=== PATIENT | male | born 1955 | race Caucasian/White ===

== ENCOUNTER → 2019-11-24 12:28 | Outpatient (BNVA) | payer BC, SELFPAY | PROVIDERS: Family Provider Nurse Practitioner Family; Visit Provider Urology | DX: N40.1 Benign prostatic hyperplasia with lower urinary tract symptoms (principal); Z12.5 Encounter for screening for malignant neoplasm of prostate; R79.89 Other specified abnormal findings of blood chemistry; N52.9 Male erectile dysfunction, unspecified | CPT/HCPCS: 81001; 84403 ==

== ENCOUNTER → 2020-02-17 12:41 | Outpatient (BNVA) | payer BC, SELFPAY | PROVIDERS: Family Provider Nurse Practitioner Family; Referring Provider Nurse Practitioner Family; Visit Provider Dermatology | DX: Z12.83 Encounter for screening for malignant neoplasm of skin (principal); I83.93 Asymptomatic varicose veins of bilateral lower extremities; L57.0 Actinic keratosis; B35.1 Tinea unguium; L70.8 Other acne; D18.01 Hemangioma of skin and subcutaneous tissue | CPT/HCPCS: 17000; 99203 ==

== ENCOUNTER 2020-05-14 05:59 | Emergency (ER) | payer BC, SELFPAY ==
[2020-05-14 06:05] VITALS: BP 152/97; PULSE 82; RESP 16; TEMP 36.7; O2SAT 95; BMI 33.8
--- NOTE | 2020-05-14 06:13 | W.ED.EAR ---
HPI - Ear Problem General: Chief complaint: Ear Stated complaint: possible bug in right ear Time Seen by Provider: 05/14/20 06:00 Source: patient Mode of arrival: ambulatory Limitations: no limitations History of Present Illness: HPI Narrative: 64-year-old male who states he was sleeping in woke up and felt a bug crawled in his ear. He has tried to flush it out with peroxide with no success. Patient states he does have pain he rates a 2 out of 10. Denies any worsening improving factors. MD Complaint: ear pain Location: right ear Associated symptoms: Reports ear or mastoid pain; Denies fever(s), headache(s) or neck pain Review of Systems Const: Denies: fever(s), chills, body aches or change in appetite Eyes: Denies: blurry vision or eye discomfort ENMT: Reports: ear or mastoid pain Card: Denies: chest pain Resp: Denies: dyspnea GI: Denies: abdominal pain, nausea, vomiting or diarrhea : Denies: dysuria Musc: Denies: neck pain or back pain Skin/Breast: Denies: rash Neuro: Denies: headache(s) Psych: Denies: depression Isaak/Lymph: Denies: easy bruising All/Imm: Denies: urticaria PFSH ED PFSH: Medical History (Updated 05/14/20 @ 06:13 by Mohit Koch MD) BPH NOS w ur obs/LUTS Erectile dysfunction Hypogonadism Surgical History H/O inguinal hernia repair bilateral Family History Mother , at age 91 Hypertension Diabetes Father , at age 81 Cancer testicle Hypertension Denies family history of CAD (coronary artery disease) Social History Smoking and tobacco status: former smoker Alcohol intake: current Alcohol intake frequency: holidays/special occasions only Marital status: Current occupational status: employed History of recent travel: No Physical Exam Const: COMMON NORMALS: no acute distress, patient oriented x3 and healthy appearing HENMT: COMMON NORMALS: normocephalic and atraumatic HEAD & SCALP: normocephalic and atraumatic OTHER: Cockroach noted in right ear canal Eye: COMMON NORMALS: Equal, round and reactive pupils present and EOMs intact bilaterally PUPIL: Yes Equal, round and reactive pupils present Neck/C-Spine: COMMON NORMALS: full ROM and supple Chest: COMMONS NORMALS: normal inspection of the chest and normal palpation of entire chest wall Resp: COMMON NORMALS: normal respiratory effort, No retractions, No use of accessory muscles and clear to auscultation bilaterally AUSCULTATION: clear to auscultation bilaterally Cardio: COMMON NORMALS: regular rate, regular rhythm and No murmurs present (Cardio) RATE: regular rate RHYTHM: regular rhythm GI: COMMON NORMALS: Normal to inspection, nondistended, normoactive bowel sounds present, Soft to palpation, non-tender and no masses PALPATION: Yes Soft to palpation Extremity: COMMON NORMALS: normal to inspection and full ROM Neuro: COMMON NORMALS: patient oriented x3, moves all extremities and no focal motor deficits Psych: COMMON NORMALS: mental status grossly normal, Normal thought process present and cooperative THOUGHT PROCESS: Normal thought process present Skin: COMMON NORMALS: no rashes or lesions noted and no wounds GENERAL SKIN EXAM: no rashes or lesions noted Procedures Foreign Body Removal Site: other (ear) Description of foreign body: insect and other Sedation/Analgesia: none Technique: removal with forceps Confirmed by:: direct visualization Complications: none Course Vital Signs: Vital signs: Vital Signs Temperature 98.0 F 05/14/20 06:05 Pulse Rate 82 05/14/20 06:05 Respiratory Rate 16 05/14/20 06:05 Blood Pressure 152/97 05/14/20 06:05 Pulse Oximetry 95 05/14/20 06:05 MDM - Ear MDM Narrative: Medical decision making narrative: Patient presents here with insect in his right ear. Discharge Plan Discharge Patient Disposition: Home Clinical Impression: Foreign body in ear Qualifiers: Encounter type: initial encounter Laterality: right Qualified Code(s): T16.1XXA - Foreign body in right ear, initial encounter Condition: Stable Prescriptions: New ofloxacin 0.3 % drops 10 drp otic (ear) DAILY 7 Days Qty: 10 RF: 0 No Action simvastatin 10 mg tablet 10 mg PO DAILY RF: 0 ascorbate calcium (vitamin C) 500 mg tablet 500 mg PO DAILY RF: 0 omeprazole magnesium [Prilosec OTC] 20 mg tablet,delayed release (DR/EC) 20 mg PO DAILY RF: 0 sildenafil 100 mg tablet 100 mg PO DAILY PRN (Reason: sexual activity) Qty: 20 RF: 12 ropinirole 0.5 mg tablet 1 mg PO DAILY RF: 0 terazosin 10 mg capsule 10 mg PO DAILY Qty: 90 RF: 3 finasteride 5 mg tablet 5 mg PO DAILY Qty: 90 RF: 3 Discharge Orders: Discharge Order (Routine); Ordered 05/14/20 Ordered By: Mohit Koch Referrals: Mera Diaz FNP [Primary Care Provider] - Discharge Diet: Advance as tolerated Discharge Activity: Resume usual activity Patient Instructions: Ear Foreign Body (ED) Coding Level of Care Code ED Basket Bottom Machine Operator for Renny Munroe
[2020-05-14 06:17] VITALS: RESP 18
== END 2020-05-14 06:18 | disposition home or self-care (01) ==
PROVIDERS: Emergency Provider Emergency Medicine; PCP Nurse Practitioner Family
DX: T16.1XXA Foreign body in right ear, initial encounter (principal); Z87.891 Personal history of nicotine dependence; X58.XXXA Exposure to other specified factors, initial encounter
CPT/HCPCS: 12345; 69200; 99282

== ENCOUNTER 2020-06-06 16:46 | Emergency (ER) | payer BC, SELFPAY ==
[2020-06-06 16:52] VITALS: BP 132/81; PULSE 99; RESP 20; TEMP 36.9; O2SAT 97; BMI 32.8
--- NOTE | 2020-06-06 16:52 | XR_ITS ---
WS: [id number] XR chest 1V portable [id number] REASON FOR EXAM: cp FINDINGS: The chest is unchanged compared to previous examination of 11/14/2015. There is mild tortuosity of the thoracic aorta without significant dilatation. 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 No active pulmonary parenchymal or pleural disease is noted. Degenerative spondylosis, moderate, in the mid and lower thoracic spine. XR/XR chest 1V portable [id number] IMPRESSION: No acute chest abnormality.
--- NOTE | 2020-06-06 16:52 | ECG_ITS ---
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 Measurements Intervals [place] Rate: 98 P: 17 ND: 156 QRS: 42 QRSD: 90 T: 53 QT: 335 QTc: 429 Interpretive Statements SINUS RHYTHM POSSIBLE LEFT ATRIAL ENLARGEMENT [-0.1mV P WAVE IN V1/V2] NONSPECIFIC T-WAVE ABNORMALITY No previous ECG available for comparison Electronically Signed On 06-06-2020 21:03:09 IT SECURITY ANALYST by Hanny Jackson M.D. [id number]
--- NOTE | 2020-06-06 17:10 | ED_ITS ---
HPI - Chest Pain General: Chief Complaint: Chest Pain Stated Complaint: NUMBNESS IN ARMS/LEGS TIGHTNESS IN CHEST Time Seen by Provider: 06/06/20 16:57 Source: patient Mode of arrival: ambulatory Limitations: no limitations History of Present Illness: HPI narrative: 64-year-old male states today at work roughly 5 to 6 hours ago he had some slight chest pain and some numbness in his right arm and right leg. He states that the numbness and the pain ever since resolved. He states last 2 to 3 days he has had a slight cough and low- grade fever and just has not felt well and has had low energy. He denies any worsening or improving factors. He denies any shortness of breath. Denies any vomiting or diarrhea. Associated symptoms: Deny abdominal pain, dyspnea, fever(s), nausea or vomiting Review of Systems Const: Denies: fever(s), chills, body aches or change in appetite Eyes: Denies: blurry vision or eye discomfort ENMT: Denies: throat pain or dental pain Card: Reports: chest pain Resp: Denies: dyspnea GI: Denies: abdominal pain, nausea, vomiting or diarrhea : Denies: dysuria Musc: Denies: neck pain or back pain Skin/Breast: Denies: rash Neuro: Denies: headache(s) Psych: Denies: depression Isaak/Lymph: Denies: easy bruising All/Imm: Denies: urticaria PFSH ED PFSH: Medical History (Updated 06/06/20 @ 19:42 by Mohit Koch MD) BPH NOS w ur obs/LUTS Erectile dysfunction Hypogonadism Surgical History H/O inguinal hernia repair bilateral Family History Mother , at age 91 Hypertension Diabetes Father , at age 81 Cancer testicle Hypertension Denies family history of CAD (coronary artery disease) Social History Smoking and tobacco status: former smoker Alcohol intake: current Alcohol intake frequency: holidays/special occasions only Marital status: Current occupational status: employed History of recent travel: No Physical Exam Const: COMMON NORMALS: no acute distress, patient oriented x3 and healthy appearing HENMT: COMMON NORMALS: normocephalic and atraumatic HEAD & SCALP: normocephalic and atraumatic Eye: COMMON NORMALS: Equal, round and reactive pupils present and EOMs intact bilaterally PUPIL: Yes Equal, round and reactive pupils present Neck/C-Spine: COMMON NORMALS: full ROM and supple Chest: COMMONS NORMALS: normal inspection of the chest and normal palpation of entire chest wall Resp: COMMON NORMALS: normal respiratory effort, No retractions, No use of accessory muscles and clear to auscultation bilaterally AUSCULTATION: clear to auscultation bilaterally Cardio: COMMON NORMALS: regular rate, regular rhythm and No murmurs present (Cardio) RATE: regular rate RHYTHM: regular rhythm GI: COMMON NORMALS: Normal to inspection, nondistended, normoactive bowel sounds present, Soft to palpation, non-tender and no masses PALPATION: Yes S oft to palpation Extremity: COMMON NORMALS: normal to inspection and full ROM Neuro: COMMON NORMALS: patient oriented x3, moves all extremities and no focal motor deficits Psych: COMMON NORMALS: mental status grossly normal, Normal thought process present and cooperative THOUGHT PROCESS: Normal thought process present Skin: COMMON NORMALS: no rashes or lesions noted and no wounds GENERAL SKIN EXAM: no rashes or lesions noted Course Vital Signs: Vital signs: Vital Signs Temperature 98.4 F 06/06/20 16:52 Pulse Rate 99 06/06/20 16:52 Respiratory Rate 20 H 06/06/20 16:52 Blood Pressure 132/81 06/06/20 16:52 Pulse Oximetry 97 06/06/20 16:52 MDM - Chest Pain MDM Narrative: Medical decision making narrative: Hollis presents here with chest pain is atypical in nature. Initial and repeat troponins along with EKGs are normal. He is well-appearing here and is stable for discharge. He has no signs of pulmonary embolism. He has no signs of aortic dissection. He is to follow-up his PCP in 3 to 5 days return to the ER if worsening. Lab Data: Labs: Lab Results 06/06/20 06/06/20 06/06/20 Range/Units 17:18 17:18 17:18 WBC 5.9 (4.0-10.0) 10^3/ uL RBC 4.58 (4.1-5.3) 10^6/u L Hgb 13.9 (11.7-16.6) g/dL Hct 39.0 L (42.0-52.0) % MCV 85.2 (80-94) fL MCH 30.3 (28.0-34.0) pg MCHC 35.6 (30.0-36.0) g/dL RDW 13.0 (12.1-15.1) % Plt Count 168 (130-400) 10^3/c mm MPV 11.3 H (7.4-10.4) fL Neut % (Auto) 83.0 % Lymph % (Auto) 9.5 % Reynolds % (Auto) 6.6 % Eos % (Auto) 0.3 % Baso % (Auto) 0.3 % Neut # (Auto) 4.91 (1.8-7.7) 10^3/u L Lymph # (Auto) 0.6 L (0.8-4.8) 10^3/u L Reynolds # (Auto) 0.4 (0.2-0.9) 10^3/u L Eos # (Auto) 0.0 (0.0-0.8) 10^3/u L Baso # (Auto) 0.0 (0.0-0.1) 10^3/u L Nucleated RBC % (a uto) 0 % Nucleated RBCs # 0.0 /100WBC Sodium 139 (136-145) mmol/L Potassium 3.8 (3.5-5.1) mmol/L Chloride 104 (98-107) mmol/L Carbon Dioxide 22 (22-29) mmol/L Anion Gap 16.8 (5-19) BUN 21 (8-23) mg/dL Creatinine 1.0 (0.7-1.2) mg/dL GFR Calculation 75.7 L (90-130) mL/min Glucose 179 H (65-115) mg/dL Calculated Osmolal ity 295 (285-295) mOsm/k g Calcium 8.6 (8.5-10.5) mg/dL Total Bilirubin 0.4 (0.15-1.2) mg/dL AST 22 (0-40) U/L ALT 21 (0-41) U/L Alkaline Phosphata se 88 (40-130) IU/L Troponin T Baselin e 9 (0-15) ng/L Troponin T 120 Min port gamble (0-15) ng/L Delta Troponin T (0-10) ABS# Total Protein 6.6 (6.6-8.7) g/dL Albumin 4.3 (3.5-5.2) g/dL Globulin 2.3 (1.3-4.6) g/dL 06/06/20 Range/Units 19:07 WBC (4.0-10.0) 10^3/ uL RBC (4.1-5.3) 10^6/u L Hgb (11.7-16.6) g/dL Hct (42.0-52.0) % MCV (80-94) fL MCH (28.0-34.0) pg MCHC (30.0-36.0) g/dL RDW (12.1-15.1) % Plt Count (130-400) 10^3/c mm MPV (7.4-10.4) fL Neut % (Auto) % Lymph % (Auto) % Reynolds % (Auto) % Eos % (Auto) % Baso % (Auto) % Neut # (Auto) (1.8-7.7) 10^3/u L Lymph # (Auto) (0.8-4.8) 10^3/u L Reynolds # (Auto) (0.2-0.9) 10^3/u L Eos # (Auto) (0.0-0.8) 10^3/u L Baso # (Auto) (0.0-0.1) 10^3/u L Nucleated RBC % (a uto) % Nucleated RBCs # /100WBC Sodium (136-145) mmol/L Potassium (3.5-5.1) mmol/L Chloride (98-107) mmol/L Carbon Dioxide (22-29) mmol/L Anion Gap (5-19) BUN (8-23) mg/dL Creatinine (0.7-1.2) mg/dL GFR Calculation (90-130) mL/min Glucose (65-115) mg/dL Calculated Osmolal ity (285-295) mOsm/k g Calcium (8.5-10.5) mg/dL Total Bilirubin (0.15-1.2) mg/dL AST (0-40) U/L ALT (0-41) U/L Alkaline Phosphata se (40-130) IU/L Troponin T Baselin e (0-15) ng/L Troponin T 120 Min port gamble 7.60 (0-15) ng/L Delta Troponin T -1.40 L (0-10) ABS# Total Protein (6.6-8.7) g/dL Albumin (3.5-5.2) g/dL Globulin (1.3-4.6) g/dL Imaging Data^: CXR: Attestation: I personally reviewed and interpreted this imaging study as follows: Radiologist's impression: [facility] [address] [facility] [place] [address] XRay Report Signed Patient: Hollis Rain Unit #: [id number] : 1955 Age/Sex: 64 / M ADM Date: 06/06/20 Loc: ER Room/Bed: Attending Dr: Ordering Provider/Ordering MD: Mohit Koch MD Date of Service: 06/06/20 Procedure(s): XR chest 1V portable [id number] Accession Number(s): [id number] Report Number: [id number] WS: [id number] XR chest 1V portable [id number] REASON FOR EXAM: cp FINDINGS: The chest is unchanged compared to previous examination of 11/14/2015. There is mild tortuosity of the thoracic aorta without significant dilatation. 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 No active pulmonary parenchymal or pleural disease is noted. Degenerative spondylosis, moderate, in the mid and lower thoracic spine. XR/XR chest 1V portable [id number] IMPRESSION: No acute chest abnormality. Dictated By: Jonas Garcia Jr, MD EKG Data^: EKG 1: Attestation: I personally reviewed and interpreted this EKG as follows: EKG interpretation date: 06/06/20 EKG interpretation time: 16:51 Interpretation: nsr hr [address] or t wave abnormalities qrs 90 qtc 391 EKG 2: Attestation: I personally reviewed and interpreted this EKG as follows: EKG interpretation date: 06/06/20 EKG interpretation time: 19:00 Interpretation: nsr hr [address] or t wave abnormalities qrs 84 qtc 370 Discharge Plan Discharge Patient Disposition: Home Clinical Impression: Atypical chest pain Condition: Stable Prescriptions: No Action simvastatin 10 mg tablet 10 mg PO DAILY@22 RF: 0 omeprazole magnesium [Prilosec OTC] 20 mg tablet,delayed release (DR/EC) 20 mg PO DAILY@22 RF: 0 sildenafil 100 mg tablet 100 mg PO DAILY PRN (Reason: sexual activity) Qty: 20 RF: 12 terazosin 10 mg capsule 10 mg PO DAILY@22 RF: 0 finasteride 5 mg tablet 5 mg PO DAILY@22 RF: 0 Discharge Orders: Discharge ED (Routine); Ordered 06/06/20 Ordered By: Mohit Koch Referrals: Mera Diaz FNP [Primary Care Provider] - 1-3 days Discharge Diet: Advance as tolerated Discharge Activity: Resume usual activity Patient Instructions: Chest Pain (ED) Coding Level of Care Code ED Well Control Instructor for Chg Fwd Exam Comprehensive
[2020-06-06 17:27] LABS: Basophils % 0.3 %; Eosinophils % 0.3 %; Hemoglobin 13.9 g/dL (11.7-16.6); Lymphocytes # 0.6 10^3/uL (0.8-4.8); Lymphocytes % 9.5 %; Mean Corpuscular HGB Conc 35.6 g/dL (30.0-36.0); Mean Corpuscular Hemoglobin 30.3 pg (28.0-34.0); Mean Corpuscular Volume 85.2 fL (80-94); Mean Platelet Volume 11.3 fL (7.4-10.4); Monocytes # 0.4 10^3/uL (0.2-0.9); Monocytes % 6.6 %; Neutrophils # 4.91 10^3/uL (1.8-7.7); Nucleated Red Blood Cells % 0 %; Platelet Count 168 10^3/cmm (130-400); Red Blood Count 4.58 10^6/uL (4.1-5.3); White Blood Count 5.9 10^3/uL (4.0-10.0)
[2020-06-06 18:02] LABS: Alanine Aminotransferase 21 U/L (0-41); Albumin Level 4.3 g/dL (3.5-5.2); Alkaline Phosphatase 88 IU/L (40-130); Anion Gap 16.8 (5-19); Aspartate Amino Transferase 22 U/L (0-40); Blood Urea Nitrogen 21 mg/dL (8-23); Calcium 8.6 mg/dL (8.5-10.5); Carbon Dioxide 22 mmol/L (22-29); Chloride 104 mmol/L (98-107); Globulin 2.3 g/dL (1.3-4.6); Glomerular Filtration Rate 75.7 mL/min (90-130); Glucose 179 mg/dL (65-115); Osmolality Calculated 295 mOsm/kg (285-295); Potassium 3.8 mmol/L (3.5-5.1); Sodium 139 mmol/L (136-145); Total Bilirubin 0.4 mg/dL (0.15-1.2); Total Protein 6.6 g/dL (6.6-8.7)
[2020-06-06 18:03] LABS: Troponin(5th) Baseline 9 ng/L (0-15)
--- NOTE | 2020-06-06 18:52 | ECG_ITS ---
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 Measurements Intervals [place] Rate: 84 P: 39 IN: 173 QRS: 56 QRSD: 84 T: 85 QT: 329 QTc: 389 Interpretive Statements SINUS RHYTHM NONSPECIFIC T-WAVE ABNORMALITY Compared to ECG 06/06/2020 16:51:17 No significant changes Electronically Signed On 06-06-2020 21:12:48 ARMATURE WINDER AUTOMOTIVE by Hanny Jackson M.D. [email or web address]/[id number]
[2020-06-08 18:11] LABS: Coronavirus Lab Test PTC Positive
--- NOTE | 2020-06-09 08:43 | PC.NURSE ---
notified pt of positive covid results.
== END 2020-06-06 21:01 | disposition home or self-care (01) ==
PROVIDERS: Emergency Provider Emergency Medicine; PCP Nurse Practitioner Family
DX: R07.89 Other chest pain (principal); Z87.891 Personal history of nicotine dependence; U07.1 COVID-19
CPT/HCPCS: 12345; 71045; 80053; 84484; 85025; 87635; 93005; 96360; 99282; 99283

== ENCOUNTER → 2020-11-23 10:52 | Outpatient (BNVA) | payer BC, SELFPAY | PROVIDERS: PCP Nurse Practitioner Family; Visit Provider Urology | DX: R79.89 Other specified abnormal findings of blood chemistry (principal); N40.1 Benign prostatic hyperplasia with lower urinary tract symptoms; N52.9 Male erectile dysfunction, unspecified; Z12.5 Encounter for screening for malignant neoplasm of prostate | CPT/HCPCS: 81003; 84403; G0103 ==

== ENCOUNTER 2021-12-25 14:48 | Outpatient (CLI) | payer BC, SELFPAY ==
[2021-12-25 16:01] LABS: Prostate Specific Antigen 0.914 ng/mL (0-4); Testosterone Total 205.7 ng/dL (193-740)
== END 2021-12-25 14:49 | disposition home or self-care (01) ==
LOC: LAB 14:51
PROVIDERS: PCP Nurse Practitioner Family; Visit Provider Urology
DX: R97.20 Elevated prostate specific antigen [PSA] (principal); R79.89 Other specified abnormal findings of blood chemistry
CPT/HCPCS: 36415; 81003; 84153; 84403

== ENCOUNTER 2023-08-18 16:51 | Outpatient (CLI) | payer BC, SELFPAY ==
--- NOTE | 2023-08-18 17:02 | XRR_ITS ---
PROCEDURE INFORMATION: Exam: XR Chest Exam date and time: 08/18/2023 5:04 PM Age: 68 years old Clinical indication: Cough; Additional info: Chest congestion, cough TECHNIQUE: Imaging protocol: Radiologic exam of the chest. Views: 2 views. COMPARISON: CR XR chest 1V portable [id number] 06/06/2020 5:29 PM FINDINGS: Lungs: Unremarkable. No consolidation. Pleural spaces: Unremarkable. No pleural effusion. No pneumothorax. Heart/Mediastinum: Unremarkable. No cardiomegaly. Bones/joints: Unremarkable. XR/XR chest 2V* [id number] IMPRESSION: No acute findings.
== END 2023-08-18 16:52 | disposition home or self-care (01) ==
LOC: RAD 16:55
PROVIDERS: PCP Nurse Practitioner Family; Visit Provider Nurse Practitioner Family
DX: R05.9 Cough, unspecified (principal); R09.89 Other specified symptoms and signs involving the circulatory and respiratory systems
CPT/HCPCS: 71046

== ENCOUNTER 2024-03-09 09:58 | Outpatient (CLI) | payer BC, SELFPAY ==
--- NOTE | 2024-03-09 10:00 | US_ITS ---
WS: [id number] SCROTAL ULTRASOUND EXAMINATION CLINICAL INFORMATION: TESTICULAR PAIN, LEFT AND RIGHT COMPARISON: None. FINDINGS: TESTES Normal in size and echotexture, without focal lesion. Color Doppler: Normal color Doppler flow pattern. Right testes size: 4.0 cm x 2.6 cm x 2.7 cm. Left testes size: 3.8 cm x 3.1 cm x 2.3 cm. EPIDIDYMIDES Normal in size and echotexture, without focal lesion. Color Doppler: Normal color Doppler flow pattern. Right epididymis size: 0.9 cm x 1.1 cm x 0.8 cm. Left epididymis size: 0.9 cm x 1.1 cm x 0.7 cm. HYDROCELE None. VARICOCELE Left-sided varicocele OTHER FINDINGS None. US/US scrotum [id number] IMPRESSION: 1. Left-sided varicocele. 2. No other suspicious findings.
== END 2024-03-09 09:59 | disposition home or self-care (01) ==
LOC: RAD 09:59
PROVIDERS: PCP Nurse Practitioner Family; Visit Provider Nurse Practitioner Family
DX: I86.1 Scrotal varices (principal)
CPT/HCPCS: 76870

== ENCOUNTER 2024-08-05 11:57 | Outpatient (CLI) | payer BC, SELFPAY ==
--- NOTE | 2024-08-05 12:05 | US_ITS ---
WS: [id number] URINARY BLADDER ULTRASOUND HISTORY: URINARY HESITANCY COMPARISON: None available. Urinary bladder is well distended. No intraluminal filling defect. No free fluid adjacent to the urinary bladder. Prostate gland is enlarged encroaching into the bladder. Bladder Wall Thickness: 0.3 cm. Bladder Prevoid: 8.7 cm x 8.6 cm x 7.1 cm. Prevoid volume: 281 ml. Bladder Postvoid: 8.6 cm x 8.1 cm x 6.6 cm. Postvoid volume: 239.8 ml. US/ bladder [id number] IMPRESSION: 1. Moderate post void residual. Minimal emptying of the urinary bladder. 2. Markedly enlarged prostate gland.
== END 2024-08-05 11:58 | disposition home or self-care (01) ==
PROVIDERS: PCP Nurse Practitioner Family; Visit Provider Nurse Practitioner Family
DX: R39.11 Hesitancy of micturition (principal); R39.9 Unspecified symptoms and signs involving the genitourinary system; N40.0 Benign prostatic hyperplasia without lower urinary tract symptoms; R39.198 Other difficulties with micturition
CPT/HCPCS: 76857

== ENCOUNTER → 2025-04-07 14:34 | Outpatient (BNVA) | payer MEDICARE, OTHER, SELFPAY | PROVIDERS: PCP Nurse Practitioner Family; Visit Provider Nurse Practitioner Family | DX: L81.4 Other melanin hyperpigmentation (principal); D18.01 Hemangioma of skin and subcutaneous tissue; L73.8 Other specified follicular disorders; L91.8 Other hypertrophic disorders of the skin; L73.9 Follicular disorder, unspecified; L85.8 Other specified epidermal thickening | CPT/HCPCS: 99213 ==